=== PATIENT | male | born 1980 | race Caucasian/White ===

== ENCOUNTER 2016-11-10 02:08 | Emergency (ER) | payer BC ==
[~2016-11-10] VITALS: Ht 172.7 cm; Wt 70.3 kg
[2016-11-10 02:16] VITALS: BP 149/85
--- NOTE | 2016-11-10 02:55 | NUR ---
CALLED PT IN [place], NO REPONSE
--- NOTE | 2016-11-10 03:21 | NUR ---
CALLED PT IN [place], NO REPONSE
--- NOTE | 2016-11-10 04:06 | NUR ---
CALLED PT IN [place], NO REPONSE
--- NOTE | 2016-11-10 04:52 | NUR ---
CALLED PT IN [place], NO REPONSE
== END 2016-11-10 04:53 | disposition left against medical advice (07) ==
LOC: ER 02:08
DX: Z53.21 Procedure and treatment not carried out due to patient leaving prior to being seen by health care provider (principal)
CPT/HCPCS: A4606; Z7610